=== PATIENT | female | born 1980 | race Caucasian/White ===

== ENCOUNTER 2017-03-16 03:24 | Emergency (ER) | payer MEDICARE, OTHER ==
[~2017-03-16] VITALS: Ht 162.6 cm; Wt 76.5 kg
[2017-03-16 03:28] VITALS: Ht 162.6 cm; Wt 76.5 kg
[2017-03-16] MEDS ORDERED: NPH10OT BOTH EARS (03:48)
[2017-03-16] MEDS ORDERED: CETI10CA PO (03:48)
--- NOTE | 2017-03-16 03:55 | ERD ---
ER Documentation Chief Complaint Date/Time DATE: 03/16/17 TIME: 03:52 Chief Complaint bilateral ear pain x 10 days HPI 37-year-old female presents here in emergency department for complaints of bilateral ear pain for 10 days, started with itching in both ears, was using Q- tips to clean the ear and itch the ear, started to have the pain afterwards. Patient described the pain as throbbing pain, 6/10 scale, not better or worse with anything. Patient denies any problems with hearing. Patient denies any foreign body sensation in the ear. Patient denies any ear discharge. ROS All systems reviewed and are negative except as per history of present illness. Medications Home Meds Active Scripts Cetirizine Hcl* (Zyrtec*) 10 Mg Capsule, 10 MG PO DAILY, #30 TAB.CHEW Prov:CAMRON SCHMIDT NP 03/16/17 Neomycin/Polymyxin/Hydrocort* (Cortisporin* Otic) 10 Ml Susp, 4 DROP BOTH EARS QID for 7 Days, EA Prov:CAMRON SCHMIDT NP 03/16/17 Allergies Allergies: Coded Allergies: No Known Allergy (Unverified , 03/16/17) PMhx/Soc History of Surgery: Yes (LT BREAST ) Anesthesia Reaction: No Hx Neurological Disorder: No Hx Respiratory Disorders: No Hx Cardiac Disorders: No Hx Psychiatric Problems: No Hx Miscellaneous Medical Probl: Yes (BREAST CA ) Hx Alcohol Use: No Hx Substance Use: No Hx Tobacco Use: Yes (3 CIGS/ DAY ) Smoking Status: Current every day smoker FmHx Family History: No coronary disease, No diabetes, No other Physical Exam Vitals Vital Signs Date Time Temp Pulse Resp B/P Pulse Ox O2 Delivery O2 Flow Rate FiO2 03/16/17 03:28 97.8 99 20 143/90 100 Physical Exam GENERAL: The patient is well developed and appropriate for usual state of health, in no apparent distress. HEENT: Atraumatic. Ears: Normal tympanic membrane, no erythema or bulging. Noted bilateral ear canal to be swollen and erythematous, no ear discharge noted , no foreign body.. Nose: normal nasal turbinates, no erythema or swelling. Normal nasal discharge. Throat: oropharynx clear. No tonsillar swelling or tonsillar exudates. No lymphadenopathy. CHEST: Clear to auscultation bilaterally. There are no rales, wheezes or rhonchi. HEART: Regular rate and rhythm. No murmurs, clicks, rubs or gallops. No S3 or S4. ABDOMEN: Soft, nontender and nondistended. Good bowel sounds. No rebound or guarding. No gross peritonitis. No gross organomegaly or masses. No Hernandez sign or McBurney point tenderness. BACK: No midline or flank tenderness. EXTREMITIES: Equal pulses bilaterally. There is no peripheral clubbing, cyanosis or edema. No focal swelling or erythema. Full range of motion. Grossly neurovascularly intact. NEURO: Alert and oriented. Cranial nerves 2-12 intact. Motor strength in all 4 extremities with 5/5 strength. Sensation grossly intact. Normal speech and gait. SKIN: There is no apparent rash or petechia. The skin is warm and dry. HEMATOLOGIC AND LYMPHATIC: There is no evidence of excessive bruising or lymphedema. No gross cervical, axillary, or inguinal lymphadenopathy. Results 24 hrs Current Medications Medications (Trade) Dose Ordered Sig/Carla Route PRN Reason Start Time Stop Time Status Last Admin Dose Admin Ibuprofen (Motrin) 400 mg ONCE ONCE PO 03/16/17 04:00 03/16/17 04:01 03/16/17 03:50 Patient was given medication for pain here in emergency department, after treatment, patient verbalized feeling much better. Patient's pain is improved. Procedures/MDM Medical decision making: Patient symptoms is likely consistent with otitis externa. No symptoms of otitis media or mastoiditis. No foreign body in the ear. No TM perforation noted. No cerumen impaction. Prescription was given for Zyrtec, Corticosporin otic drops, is advised to follow-up with primary care doctor in 2-3 days for reevaluation of symptoms. She was advised to return to emergency department for any worsening symptoms. Departure Diagnosis: Primary Impression: Otitis externa Otitis externa type: unspecified type Laterality: bilateral Chronicity: acute Qualified Code: H60.503 - Acute otitis externa of both ears, unspecified type Condition: Stable Patient Instructions: External Ear Infection (Adult) Referrals: [facility] YOU HAVE RECEIVED A MEDICAL SCREENING EXAM AND THE RESULTS INDICATE THAT YOU DO NOT HAVE A CONDITION THAT REQUIRES URGENT TREATMENT IN THE EMERGENCY DEPARTMENT. FURTHER EVALUATION AND TREATMENT OF YOUR CONDITION CAN WAIT UNTIL YOU ARE SEEN IN YOUR DOCTORS OFFICE WITHIN THE NEXT 1-2 DAYS. IT IS YOUR RESPONSIBILITY TO MAKE AN APPOINTMENT FOR FOLOW-UP CARE. IF YOU HAVE A PRIMARY DOCTOR --you should call your primary doctor and schedule an appointment IF YOU DO NOT HAVE A PRIMARY DOCTOR YOU CAN CALL OUR PHYSICIAN REFERRAL HOTLINE AT IF YOU CAN NOT AFFORD TO SEE A PHYSICIAN YOU CAN CHOSE FROM THE FOLLOWING [facility] [address] [facility] [address] [facility] [address] [facility] [address] [facility] [address] [facility]. [facility] [address] [facility]. [facility] YOU HAVE RECEIVED A MEDICAL SCREENING EXAM AND THE RESULTS INDICATE THAT YOU DO NOT HAVE A CONDITION THAT REQUIRES URGENT TREATMENT IN THE EMERGENCY DEPARTMENT. FURTHER EVALUATION AND TREATMENT OF YOUR CONDITION CAN WAIT UNTIL YOU ARE SEEN IN YOUR DOCTORS OFFICE WITHIN THE NEXT 1-2 DAYS. IT IS YOUR RESPONSIBILITY TO MAKE AN APPOINTMENT FOR FOLOW-UP CARE. IF YOU HAVE A PRIMARY DOCTOR --you should call your primary doctor and schedule and appointment IF YOU DO NOT HAVE A PRIMARY DOCTOR YOU CAN CALL OUR PHYSICIAN REFERRAL HOTLINE AT . IF YOU CAN NOT AFFORD TO SEE A PHYSICIAN YOU CAN CHOSE FROM THE FOLLOWING [facility]: [facility] [address] [place] [address] [facility] [address] [place] [address] [facility] + [facility] [address] [place] [address] CAMRON SCHMIDT NP March 16, 2017 03:55
[2017-03-16] MEDS ORDERED: IBUPROFEN 200 MG TAB PO ONE (04:00)
== END 2017-03-16 03:55 | disposition home or self-care (01) ==
LOC: FTE 03:24
DX: H60.503 Unspecified acute noninfective otitis externa, bilateral (principal); F17.210 Nicotine dependence, cigarettes, uncomplicated; Z85.3 Personal history of malignant neoplasm of breast

== ENCOUNTER 2017-05-11 12:23 | Emergency (ER) | payer MEDICARE, OTHER ==
[~2017-05-11] VITALS: Ht 157.5 cm; Wt 78.0 kg
[~2017-05-11 12:23] MED LIST: CETI10CA PO; NPH10OT BOTH EARS
[2017-05-11 13:08] VITALS: Ht 157.5 cm; Wt 78.0 kg
== END 2017-05-11 14:00 | disposition left against medical advice (07) ==
LOC: E/R 12:23
DX: Z53.21 Procedure and treatment not carried out due to patient leaving prior to being seen by health care provider (principal)